=== PATIENT | male | born 1965 | race Caucasian/White ===

== ENCOUNTER 2017-10-16 12:00 | Outpatient (RCR) | payer MEDICARE, OTHER ==
[~2017-10-16 12:00] MED LIST: DIALYSIS ACETAMINOPHEN 325 MG PO PRN; LIDOCAINE/SOD BICARB 8.4% SYR SC PRN; LOPERAMIDE HCL 2 MG CAP PO PRN; PROMETHAZINE HCL 25 MG TAB PO PRN; diphenhydr DIALYSIS 50 MG/ML IVP PRN
[2017-10-16] MEDS: HEPARIN (PORCINE) 1000 UNIT/ML (DIALYSIS) IVP PRN ×2 (14:15)
[2017-10-18] MEDS: HEPARIN (PORCINE) 1000 UNIT/ML (DIALYSIS) IVP PRN ×2 (14:33)
[2017-10-21] MEDS: HEPARIN (PORCINE) 1000 UNIT/ML (DIALYSIS) IVP PRN ×2 (14:28→14:29)
== END 2017-10-21 19:35 | disposition home or self-care (01) ==
LOC: DIAL 12:00
PROVIDERS: ATTEND Internal Medicine Nephrology
DX: I12.0 Hypertensive chronic kidney disease with stage 5 chronic kidney disease or end stage renal disease (principal); E11.22 Type 2 diabetes mellitus with diabetic chronic kidney disease; N18.6 End stage renal disease; Z99.2 Dependence on renal dialysis; D63.1 Anemia in chronic kidney disease; N25.81 Secondary hyperparathyroidism of renal origin; E66.9 Obesity, unspecified; G47.33 Obstructive sleep apnea (adult) (pediatric); K92.2 Gastrointestinal hemorrhage, unspecified; E83.59 Other disorders of calcium metabolism; Z23 Encounter for immunization; Z79.4 Long term (current) use of insulin
CPT/HCPCS: 90999